=== PATIENT | female | born 1990 | race Hispanic/Latino ===

== ENCOUNTER 2023-11-08 05:14 | Emergency (ER) | payer BC, MEDICAID ==
[~2023-11-08] VITALS: Ht 167.6 cm; Wt 99.8 kg
[2023-11-08] MEDS ORDERED: HYDROXYZINE 25 MG TABLET PO ONE (06:00)
[2023-11-08] MEDS ORDERED: HYDR50CA50 PO (06:04)
[2023-11-08 06:11] VITALS: BP 122/78; PULSE 79; RESP 18; O2SAT 99
== END 2023-11-08 06:19 | disposition home or self-care (01) ==
LOC: EDH 05:14
DX: T78.40XA Allergy, unspecified, initial encounter (principal); Z90.49 Acquired absence of other specified parts of digestive tract

== ENCOUNTER → 2024-01-01 | Outpatient (CLI) | payer BC, MEDICAID ==
[~2024-01-01] MED LIST: HYDR50CA50 PO
== END | disposition home or self-care (01) ==
LOC: SHCH 15:15
PROVIDERS: ATTEND Student in an Organized Health Care Education/Training Program
DX: R07.9 Chest pain, unspecified (principal)
CPT/HCPCS: 93306

== ENCOUNTER → 2024-01-05 | Outpatient (CLI) | payer BC, MEDICAID ==
[~2024-01-05] MED LIST changes: +IOHEXOL 350 MG/ML 100ML INFUS..BTL IV ONE
== END | disposition home or self-care (01) ==
LOC: RAH 11:14
PROVIDERS: ATTEND Student in an Organized Health Care Education/Training Program
DX: R07.9 Chest pain, unspecified (principal)
CPT/HCPCS: 75574; Q9967

== ENCOUNTER 2024-10-02 01:12 | Emergency (ER) | payer BC ==
[~2024-10-02] VITALS: Ht 167.6 cm; Wt 104.3 kg
[~2024-10-02 01:12] MED LIST changes: -IOHEXOL 350 MG/ML 100ML INFUS..BTL IV ONE
--- NOTE | 2024-10-02 01:55 | NUR ---
REPORT TO MICHEL GRAY
[2024-10-02 02:14] VITALS: BP 125/87; PULSE 130; RESP 24; TEMP 100.9; O2SAT 98
[2024-10-02] MEDS: morPHINE 4 MG SYG IM ONE (02:29)
--- NOTE | 2024-10-02 02:37 | ERN ---
General Chief Complaint: Toe Pain/Injury Stated Complaint: TOE INJURY Time Seen by MD: 01:21 History of Present Illness Initial Comments Mrs Wood is a 34 year old female with a significant past medical history of morbid obesity who presents with right toe pain. Patient apparently had a weight dropped on her right pinky toe. Patient reports that she has swelling and pain. Patient was like to get evaluated to see if this is broken Allergies: Coded Allergies: No Known Allergies (Unverified Allergy, Unknown, 11/08/23) Home Meds Active Scripts Hydroxyzine Pamoate (Hydroxyzine Pamoate) 50 Mg Capsule, 50 MG PO Q6HPRN PRN for ITCHING, #20 CAP 1 Refill Prov:CARTER CARMEN Sr., MD 11/08/23 Past Medical History Past Medical History: No Pertinent History Past Surgical History: Appendectomy ROS Dictation Constitutional: Negative for fever,chills, and weight loss Eyes: Negative for injury, pain,redness, and discharge ENT: Negative for injury,pain or swelling Cardiovascular: Negative for chest pain, palpitations, and edema Respiratory: Negative for shortness of breath, cough, and wheezing, Abdomen/GI: Negative for abdominal pain, nausea, vomiting, diarrhea, and constipation Back: Negative for injury and pain : Negative for injury, bleeding and discharge MS/Extremity: Positive for right foot pain Skin: Negative for rash, and discoloration Neuro: Negative for headache, weakness, numbness, tingling, and seizure Psych: Negative for suicide ideation, homicidal ideation, and hallucinations Physical Exam Physical Exam Dictation General: awake, alert, NAD Head/Face: Normocephalic, atraumatic Eyes: PERRL, EOMI, vision at baseline ENT: oral cavity clear, Neck: Trachea midline, supple Cardiovascular: RRR, normal S1/S2 Respiratory: CTAB, no respiratory distress Abdomen: Soft, non-tender, non-distended, normal bowel sounds, no guarding or rebound. Skin: Warm, dry, normal turgor, no rash MS/Extremity: Swollen right 5th toe with the bruising. Pain with the palpation Neuro: COAx4, GCS 15, strength 5/5, CN 2-12 intact, normal cerebellar exam, normal gait, Psych: Normal behavior, mood, and affect normal MDM Patient appears to have a 5th toe distal phalanges fracture. Patient will be placed in a splint and asked to follow up as an outpatient. Patient advised not to excessively walk on foot MDM: Differential diagnosis: Distal right phalangeal fracture Rationale: Tests considered and ordered secondary to shared decision making include: Previous outside records reviewed: Old ER visits. Risk of complication and/or morbidity or mortality of patient management: None Medications-Per medication reconciliation Need for hospitalization: Patient does not meet criteria for hospitalization. Need for emergency major/minor surgery: No There are no social concerns with this patient. Prescription drug management Prescriptions will include symptomatic care Patient's prior external medical records from other ER visits were reviewed by me as indicated. Prior testing and results from previous visits were reviewed. Prior tests were taken into account with medical decision making and resource utilization, independent historian/historians were used to obtain complete medical history. I independently interpreted the test that were performed, results were reviewed by me and considered findings on radiology if ordered. Medical management and examination interpretation discussions were had by me with other qualified healthcare professionals as indicated for the patient's care. ED Course Orders Procedure Category Date Status Time Foot Comp 3+Vws Rt RAD 10/02/24 Taken 01:16 Morphine 4mg Syg PHA 10/02/24 Complete (Morphine 4mg Syg) 02:30 Current Medications Medications (Trade) Dose Ordered Sig/Myron Route PRN Reason Start Time Stop Time Status Last Admin Dose Admin Morphine Sulfate (morPHINE 4MG SYG) 4 mg ONCE ONCE IM 10/02/24 02:30 10/02/24 02:32 DC 10/02/24 02:29 Vital Signs Date Time Temp Pulse Resp B/P (MAP) Pulse Ox O2 Delivery O2 Flow Rate FiO2 10/02/24 02:14 100.9 130 24 125/87 98 Room Air* 0 21 10/02/24 01:13 98.1 78 18 127/86 100 Room Air DX & DISP Disposition: Discharge Departure Impression: Primary Impression: Toe fracture, right Condition: Stable Additional Instructions: Please follow up with your primary care physician in the next 1-7 days for further evaluation and care. Please stay in splint and boot until seen by Orthopedics. Please see orthopedics in the next 1-4 weeks. Referrals: JARRED SIMMONS MD (PCP) LINETTE COLE MD Oct 02, 2024 02:37
--- NOTE | 2024-10-02 03:20 | NUR ---
ALUMINUM SPLINT APPLIED TO R 5 TH TOE. ORTHO SHOE APPLIED TO R FOOT. PATIENT TOLERATED WELL
--- NOTE | 2024-10-02 08:24 | HMCIMG ---
FOOT COMP 3+VWS RT REASON: 20 POUND FELL ON FOOT, BRUISING TO 5TH TOE AND BELOW 4TH TECHNIQUE: 3 views were obtained. FINDINGS: There is a nondisplaced fracture of the distal phalanx of the right fifth toe. Bones of the foot appear otherwise unremarkable, there are no additional fractures. Joint spaces are preserved. There is some soft tissue swelling of the fifth toe. There is no evidence of foreign body. IMPRESSION: 1. Nondisplaced fracture proximal base of the left fifth distal phalanx.
== END 2024-10-02 03:38 | disposition home or self-care (01) ==
LOC: EDH 01:12
DX: S92.534A Nondisplaced fracture of distal phalanx of right lesser toe(s), initial encounter for closed fracture (principal); E66.01 Morbid (severe) obesity due to excess calories; Z79.899 Other long term (current) drug therapy; Z90.49 Acquired absence of other specified parts of digestive tract; W20.8XXA Other cause of strike by thrown, projected or falling object, initial encounter; Y93.89 Activity, other specified; Y92.89 Other specified places as the place of occurrence of the external cause; Y99.8 Other external cause status
CPT/HCPCS: 99284; 73630; 29130; 96372; J2270

== ENCOUNTER 2024-12-08 00:22 | Emergency (ER) | payer BC ==
[~2024-12-08] VITALS: Ht 167.6 cm; Wt 108.9 kg
--- NOTE | 2024-12-08 00:32 | ERN ---
ED Note History of Present Illness Stated Complaint: C/O SORE THROAT, COUGH, FEVER, BACK PAIN Chief Complaint: Sore Throat Time Seen by MD: 00:24 Dictation: PATIENT IS A 34-YEAR-OLD FEMALE COMING IN TODAY WITH FLU-LIKE SYMPTOMS TO INCLUDE FEVER CHILLS BODY ACHES SORE THROAT, DRY COUGH WITH CLEAR RHINITIS FOR THE LAST 2-3 DAYS. SHE IS ALSO STATES SHE IS HAVING SOME BACK PAIN HOWEVER NO CHANGE IN URINATION NO FLANK PAIN. SHE HAS A PRIMARY CARE DOCTOR HOWEVER STATES SHE COULD NOT GET AN APPOINTMENT WITH HIM UNTIL THE MIDDLE OF DECEMBER. HE HAS NOT TAKEN ANYTHING TONIGHT PRIOR TO ARRIVAL FOR PAIN. HER DAUGHTER WAS SICK WITH THE SAME ATTEMPTED TO Allergies: Coded Allergies: No Known Allergies (Unverified Allergy, Unknown, 11/08/23) Home Meds Active Scripts Hydroxyzine Pamoate (Hydroxyzine Pamoate) 50 Mg Capsule, 50 MG PO Q6HPRN PRN for ITCHING, #20 CAP 1 Refill Prov:CARTER CARMEN Sr., MD 11/08/23 Past Medical History Past Medical History: No Pertinent History Surgical History: Appendectomy History: Not Applicable RN Note Reviewed/Agreed w/PFSH: Yes Review of System Dictation CONSTITUTIONAL: NEGATIVE EXCEPT FOR HPI FEVER CHILLS HEAD/FACE: NEGATIVE EXCEPT FOR HPI EENT: NEGATIVE EXCEPT FOR HPI CLEAR RHINITIS WITH SORE RESPIRATORY: NEGATIVE EXCEPT FOR HPI THROAT DRY COUGH GASTROINTESTINAL/ABDOMINAL: NEGATIVE EXCEPT FOR HPI GENITOURINARY: NEGATIVE EXCEPT FOR HPI MUSCULOSKELETAL: NEGATIVE EXCEPT FOR HPI INTEGUMENTARY: NEGATIVE EXCEPT FOR HPI NEUROLOGICAL/PSYCH: NEGATIVE EXCEPT FOR HPI HEMATOLOGIC/LYMPHATIC: NEGATIVE EXCEPT FOR HPI ALL SYSTEMS NEGATIVE, EXCEPT NOTED ABOVE. 13 POINT REVIEW OF SYSTEMS ASSESSED AND ALL NEGATIVE EXCEPT FOR ABOVE. Initial Vital Sign VS Vital Signs Date Time Temp Pulse Resp B/P (MAP) Pulse Ox O2 Delivery O2 Flow Rate FiO2 12/08/24 00:35 97.9 94 20 130/89 100 Room Air 12/08/24 00:36 0 21 Physical Exam Dictation VITAL SIGNS REVIEWED GENERAL APPEARANCE: ALERT, ORIENTED X 3, NO ACUTE DISTRESS, WELL DEVELOPED, NOURISHED. OBESE HEAD AND FACE: NON-TRAUMATIC. EYES: PERRL, PINK CONJUNCTIVAS, EYELID NO TRAUMA, ANTERIOR CHAMBER WITH ARCUS SENILIS. EARS: PINNAS INTACT AND NO SIGNS OF TRAUMA OR ERYTHEMA EAR CANALS CLEAR AND NO DISCHARGE TM NO ERYTHEMA NOSE: NO DISCHARGE, NO BLEEDING. OROPHARYNX: MOUTH NORMAL, TONGUE PINK, PHARYNX CLEAR MILD PHARYNGEAL ERYTHEMA, TONSILS NO EXUDATES, NO ABSCESSES NOTED, MUCOUS MEMBRANE MOIST UVULA MIDLINE, VOICE IS CLEAR NECK: SUPPLE, NON-TENDER, NO THYROMEGALY, NO MASSES, NO JVD, NO BRUITS BREAST:DEFERRED CHEST:NO TENDERNESS, NO CREPITUS, NO PARADOXICAL MOVEMENT, NO RETRACTIONS LUNGS:CLEAR, WELL-VENTILATED, SYMMETRIC, NO RALES, NO WHEEZING, NO RHONCHI, NO STRIDOR, GOOD BREATH SOUNDS BILATERALLY HEART: REGULAR RATE, REGULAR RHYTHM, NO MURMUR, NO GALLOPS VASCULAR: NO PERIPHERAL EDEMA, ABDOMEN: SOFT, POSITIVE BOWEL SOUNDS, NONDISTENDED, NO GUARDING, NONTENDER, NO REBOUND, NO MASSES NO HEPATOMEGALY, NO SPLENOMEGALY, NO DEVRIES'S SIGN, NO HERNIAS. RECTAL: DEFERRED GENITAL: DEFERRED NEUROLOGICAL: NORMAL SPEECH, MOTOR FUNCTION INTACT, SENSORY FUNCTION INTACT MUSCULOSKELETAL: NECK NONTENDER, FULL RANGE OF MOTION, BACK NONTENDER, FULL RANGE OF MOTION, EXTREMITIES: NONTENDER, FULL RANGE OF MOTION SKIN: COLOR PINK, DRY, NO TURGOR, NO RASH, NO LACERATIONS, NO ABRASIONS, NO CONTUSIONS. LYMPHATIC: DEFERRED Results (Laboratory/Radiology) Laboratory/Radiology Laboratory Tests Test 12/08/24 00:30 Influenza Type A Antigen Negative For Type A Influenza Type B Antigen Negative For Type B SARS-CoV-2 Antigen (Rapid) PRESUMPTIVE NEGATIVE Group A Streptococcus Rapid negative (NEGATIVE) Labs Reviewed?: Yes ED Course ED Course Orders Procedure Category Date Status Time Covid19 (Sars Antigen LAB 12/08/24 Complete Rapid) 00:30 Influenza Type A & B, LAB 12/08/24 Complete Rapid 00:30 Rapid (Group A Strep) LAB 12/08/24 Complete 00:30 Acetaminophen 500mg PHA 12/08/24 Complete Tab (Tylenol 500mg T 00:30 Current Medications Medications (Trade) Dose Ordered Sig/Myron Route PRN Reason Start Time Stop Time Status Last Admin Dose Admin Acetaminophen (TYLenol 500MG TAB) 1,000 mg ONCE ONCE PO 12/08/24 00:30 12/08/24 00:31 DC 12/08/24 00:43 Vital Signs Date Time Temp Pulse Resp B/P (MAP) Pulse Ox O2 Delivery O2 Flow Rate FiO2 12/08/24 00:36 99.5 101 20 138/62 98 Room Air* 0 21 12/08/24 00:35 97.9 94 20 130/89 100 Room Air Medical Decision Making MDM MEDICAL DISCHARGE MAKING BASED ON SWABS FOR FLU COVID AND STREP ALL SWABS NEGATIVE PATIENT WILL BE TREATED FOR ACUTE PHARYNGITIS UNSPECIFIED GIVEN AUGMENTIN 875 AND TOLD TO SEE HER PRIMARY CARE DOCTOR FOR FOLLOW UP. DX & DISP Disposition: Discharge Departure Impression: Primary Impression: Acute pharyngitis, unspecified Additional Impression: Fever Condition: Stable Scripts Ibuprofen (Ibuprofen 800 mg Tab) 800 Mg Tab 800 MG PO Q8H PRN for fever or pain, #30 TAB 0 Refills Prov: DEANNE GARCIA NP 12/08/24 Amoxicillin/Potassium Clav (Amox Tr-K Clv 875-125 mg Tab) 875 Mg-125 Mg Tablet 1 EACH PO BID for 7 Days, #14 TAB 0 Refills Prov: DEANNE GARCIA NP 12/08/24 Additional Instructions: FOLLOW-UP WITH PRIMARY CARE PROVIDER IN 1 TO 2 DAYS. TAKE MEDICATIONS DIRECTED HERE IN THE EMERGENCY ROOM. OKAY TO CONTINUE HOME MEDICATIONS UNLESS OTHERWISE DISCUSSED DURING YOUR VISIT IN THE EMERGENCY ROOM TODAY. RETURN TO YOUR NEAREST EMERGENCY ROOM IF SYMPTOMS WORSEN OR IF THERE IS NO IMPROVEMENT. CALL 911 IF YOU NEED IMMEDIATE ASSISTANCE. TAKE TYLENOL OR MOTRIN [id number] NEEDED AND IF NO CONTRAINDICATIONS ARE PRESENT. INCREASE ORAL HYDRATION. A WOUND CULTURE OR URINE CULTURE WAS ORDERED HERE IN THE EMERGENCY ROOM DEPARTMENT PLEASE FOLLOW-UP WITH PRIMARY CARE PROVIDER AND ADVISE THEM TO GET REPEAT PORTS FROM OUR FACILITY. IF YOU HAD ANY OLIVIER WRAP/SPLINTS THAT WERE APPLIED HERE, PLEASE DO NOT REMOVE THEM UNTIL YOU SEE YOUR PRIMARY CARE OR SPECIALTY. TAKE ANTIBIOTICS DIRECTED UNTIL GONE. , INCREASE YOUR WATER INTAKE. , SEE YOUR PRIMARY CARE DOCTOR FOR FOLLOW UP AND MANAGEMENT Referrals: JARRED SIMMONS MD (PCP) Time of Disposition: 01:49 I have reviewed the case, and I agree with, Diagnosis and Plan DEANNE GARCIA NP Dec 08, 2024 00:31
[2024-12-08] MEDS: acetaMINOPHEN 500 MG TABLET PO ONE (00:43)
[2024-12-08 01:00] LABS: RAPID GROUP A STREP negative (NEGATIVE)
[2024-12-08 01:17] LABS: COVID19 (SARS ANTIGEN RAPID) PRESUMPTIVE NEGATIVE (NEGATIVE); INFLUENZA TYPE A Negative For Type A (NEGATIVE); INFLUENZA TYPE B Negative For Type B (NEGATIVE)
[2024-12-08] MEDS ORDERED: AMOX1TAB16 PO (01:50)
[2024-12-08] MEDS ORDERED: IBUP-2077 PO (01:50)
[2024-12-08 02:09] VITALS: BP 132/68; PULSE 92; RESP 18; TEMP 99; O2SAT 99
== END 2024-12-08 02:11 | disposition home or self-care (01) ==
LOC: EDH 00:22
DX: J02.9 Acute pharyngitis, unspecified (principal); R50.9 Fever, unspecified; Z20.822 Contact with and (suspected) exposure to COVID-19; Z90.49 Acquired absence of other specified parts of digestive tract
CPT/HCPCS: 87426; 87804; 87880; 99283

== ENCOUNTER 2025-09-23 07:41 | Emergency (ER) | payer BC ==
[~2025-09-23] VITALS: Ht 167.6 cm; Wt 113.4 kg
[~2025-09-23 07:41] MED LIST changes: +AMOX1TAB16 PO; +IBUP-2077 PO
[2025-09-23 08:15] LABS: SARS-CoV-2, RNA, NAAT NEGATIVE SARS CoV-2 (NEGATIVE)
--- NOTE | 2025-09-23 09:10 | NUR ---
PT MADE AWARE OF PENDING URINE SAMPLE
[2025-09-23] MEDS ORDERED: AMOX500C2 PO (09:37)
[2025-09-23] MEDS ORDERED: FLUT16H NS (09:37)
--- NOTE | 2025-09-23 09:37 | ERN ---
General Chief Complaint: Sore Throat Stated Complaint: SORE THROAT Time Seen by MD: 07:42 Source: patient History of Present Illness Initial Comments Patient is a 35-year-old female coming in complaining of cough and sore throat. Per patient this has been ongoing for a couple of days. No fever no chills. Allergies: Coded Allergies: No Known Allergies (Unverified Allergy, Unknown, 11/08/23) Home Meds Active Scripts Ibuprofen (Ibuprofen 800 mg Tab) 800 Mg Tab, 800 MG PO Q8H PRN for fever or pain, #30 TAB 0 Refills Prov:DEANNE GARCIAP 12/08/24 Amoxicillin/Potassium Clav (Amox Tr-K Clv 875-125 mg Tab) 875 Mg-125 Mg Tablet, 1 EACH PO BID for 7 Days, #14 TAB 0 Refills Prov:DEANNE GARCIAP 12/08/24 Hydroxyzine Pamoate (Hydroxyzine Pamoate) 50 Mg Capsule, 50 MG PO Q6HPRN PRN for ITCHING, #20 CAP 1 Refill Prov:CARTER CARMEN Sr., MD 11/08/23 Past Medical History Past Medical History: No Pertinent History Past Surgical History: None Female( History) History: Not Applicable ROS Dictation CONSTITUTIONAL: No chills, no fever, no weakness, no diaphoresis, no malaise. HEAD/FACE: No signs of trauma. EENT: No eye pain, no blurred vision, no tearing, no double vision, no ear pain, no ear discharge, no nose pain, nasal congestion, throat pain, no throat swelling, no mouth pain. RESPIRATORY: No cough, no orthopnea, no SOB, no stridor, no wheezing. CARDIOVASCULAR: No chest pain, no edema, no palpitations, no syncope. GASTROINTESTINAL/ABDOMINAL: No abdominal pain, no constipation, no diarrhea, no nausea, no vomiting. GENITOURINARY: No abnormal discharge, no dysuria, no frequent urination, no hematuria. No complaints of pain in the genitals. MUSCULOSKELETAL: No back pain, no gout, no joint pain, no joint swelling, no muscle pain, no muscle stiffness, no neck pain. INTEGUMENTARY: No change in color, no change in hair/nails, no dryness, no lesion, no lumps, no rash. NEUROLOGICAL/PSYCH: No anxiety, not depressed, no emotional problem, no headache, no numbness, no pre-existing deficit, no history of seizures, no tremors, no weakness. HEMATOLOGIC/LYMPHATIC: Not anemic, no history of blood clots, no apparent bleeding, no bruising, glands not swollen. All Systems Negative, Except as Noted. Physical Exam Physical Exam Dictation VITAL SIGNS: Reviewed. GENERAL APPEARANCE: Alert, oriented x3, no acute distress, obese. HEAD AND FACE: Non-traumatic. EYES: PERRL, pink conjunctivas, eyelid no trauma, anterior chamber clear. EARS: Pinnas intact and no signs of trauma or erythema. Ear canals clear and no discharge. TMs erythema. NOSE: No discharge, no bleeding. OROPHARYNX: Mouth normal, teeth no caries, tongue pink. Pharynx erythema. Tonsils no exudates, no abscesses noted. Mucous membrane moist. NECK: Supple, non-tender, no thyromegaly, no masses, no JVD, no bruits. BREAST: Deferred. CHEST: No tenderness, no crepitus, no paradoxical movement, no retractions. LUNGS: Clear, well-ventilated, symmetric, no rales, no wheezing, no rhonchi, no stridor, good breath sounds bilaterally. HEART: Regular rate, regular rhythm, no murmur, no gallops. VASCULAR: No peripheral edema. ABDOMEN: Soft, positive bowel sounds, nondistended, no guarding, nontender, no rebound, no masses no hepatomegaly, no splenomegaly, no Ventura's sign, no hernias. RECTAL: Deferred. GENITAL: Deferred. NEUROLOGICAL: Normal speech, gross motor function intact, gross sensory function intact. MUSCULOSKELETAL: Neck nontender, full range of motion, back nontender, full range of motion. EXTREMITIES: Nontender, full range of motion. SKIN: Color pink, dry, no turgor, no rash, no lacerations, no abrasions, no contusions. LYMPHATICS: Deferred. Results Laboratory and Microbiology Lab and Micro Result Laboratory Tests Test 09/23/25 07:45 SARS-CoV-2, RNA, NAAT NEGATIVE SARS CoV-2 Group A Streptococcus Rapid negative (NEGATIVE) Labs Reviewed?: Yes MDM MDM: Differential diagnosis: Pharyngitis, strep pharyngitis, sinusitis, Rationale: Tests considered and ordered secondary to shared decision making include: Previous outside records reviewed: Old ER visits. Risk of complication and/or morbidity or mortality of patient management: None Medications-Per medication reconciliation Need for hospitalization: Patient does not meet criteria for hospitalization. Need for emergency major/minor surgery: No Patient is a 35-year-old female coming in complaining of sore throat. ALong with the patient states he has a has a cough. On physical exam oropharyngeal erythema swabs were negative. Patient will be discharged with a diagnosis sinusitis. ED Course Orders Procedure Category Date Status Time Covid Rna Naat LAB 09/23/25 Complete 07:43 Guaifenesin-Codeine PHA 09/23/25 Complete Syrup 5ml (Robitussi 08:00 ,Urine Test LAB 09/23/25 Logged 07:43 Rapid (Group A Strep) LAB 09/23/25 Complete 07:45 Current Medications Medications (Trade) Dose Ordered Sig/Myron Route PRN Reason Start Time Stop Time Status Last Admin Dose Admin Guaifenesin/ Codeine Phosphate (RobiTUSSin AC 5 ML SYRUP) 5 ml ONCE ONCE PO 09/23/25 08:00 09/23/25 08:01 DC 09/23/25 08:08 Vital Signs Date Time Temp Pulse Resp B/P (MAP) Pulse Ox O2 Delivery O2 Flow Rate FiO2 09/23/25 08:01 99.0 100 24 130/77 97 Room Air* 0 21 09/23/25 07:42 98.4 103 16 108/73 97 Room Air DX & DISP Disposition: Discharge Departure Impression: Primary Impression: Sinusitis Condition: Stable Scripts Fluticasone Propionate (Flonase Nasal Wilson) 50 Mcg/Actuation Wilson 2 SPRAY NS DAILY, #16 GM 0 Refills Prov: SADIE FALLON MD 09/23/25 Amoxicillin (Amoxicillin) 500 Mg Capsule 1 CAP PO TID for 10 Days, #30 CAP 0 Refills Prov: SADIE FALLON MD 09/23/25 Additional Instructions: FOLLOW-UP WITH PRIMARY CARE PROVIDER IN 1 TO 2 DAYS. TAKE MEDICATIONS DIRE CTED HERE IN THE EMERGENCY ROOM. OKAY TO CONTINUE HOME MEDICATIONS UNLESS OTHERWISE DISCUSSED DURING YOUR VISIT IN THE EMERGENCY ROOM TODAY. RETURN TO YOUR NEAREST EMERGENCY ROOM IF SYMPTOMS WORSEN OR IF THERE IS NO IMPROVEMENT. CALL 911 IF YOU NEED IMMEDIATE ASSISTANCE. TAKE TYLENOL [id number] NEEDED AND IF NO CONTRAINDICATIONS ARE PRESENT. INCREASE ORAL HYDRATION. A WOUND CULTURE OR URINE CULTURE WAS ORDERED HERE IN THE EMERGENCY ROOM DEPARTMENT PLEASE FOLLOW-UP WITH PRIMARY CARE PROVIDER AND ADVISE THEM TO GET REPORTS FROM OUR FACILITY. IF YOU HAD ANY OLIVIER WRAP/SPLINTS THAT WERE APPLIED HERE, PLEASE DO NOT REMOVE THEM UNTIL YOU SEE YOUR PRIMARY CARE OR SPECIALTY. REFERRALS: Referrals: JARRED SIMMONS MD (PCP) PHUONG BROTEHRS MD Time of Disposition: 09:36 SADIE FALLON MD Sep 23, 2025 09:37
[2025-09-23 10:55] VITALS: BP 112/66; PULSE 98; RESP 20; TEMP 99; O2SAT 99
--- NOTE | 2025-09-23 10:56 | NUR ---
DC PATIENT WAS DC'D BY DR FALLON I EXPLAIEND TO PATIENT TO FOLLOW UP WITH PCP, PROVIDED INFO BASED ON DIAGNOSIS, PRESCRIPTIONS AND ANSWERED ANY FOLLOW UP QUESTIONS I EXLAINED TO PATIENT PER ELVIA TO TAKE TYLENOL PO IF FEVER COMES BACK PATIENT AMBULATED OUT OF ED, NO COMPLICATIONS
== END 2025-09-23 11:00 | disposition home or self-care (01) ==
LOC: EDH 07:41
DX: J32.9 Chronic sinusitis, unspecified (principal); Z20.822 Contact with and (suspected) exposure to COVID-19
CPT/HCPCS: 81025; 87635; 87880; 99283